=== PATIENT | female | born 1955 | race Caucasian/White ===

== ENCOUNTER → 2023-11-26 | Outpatient (CLI) | payer MEDICARE ==
--- NOTE | 2023-11-26 15:34 | XR ---
EXAMINATION TYPE: XR Hip Complete LT DATE OF EXAM: 11/26/2023 3:30 PM CLINICAL INDICATION: Female, 68 years old with history of [id number] LT HIP PAIN; [facility] COMPARISON: None. TECHNIQUE: XR Hip Complete LT; hip was examined in the frontal and lateral projections and a AP pelvi s. FINDINGS: No evidence for acute process, joint dislocation or significant soft tissue swelling. Osteo phyte formation of the superior acetabulum of the hip. There is mild joint space narrowing. IMPRESSION: 1. No evidence for acute process. 2. Mild hip osteoarthrosis. [facility], , 11/26/2023 3:32 PM
== END | disposition home or self-care (01) ==
LOC: RADXRYALE 15:17
PROVIDERS: ATTEND Internal Medicine
DX: M16.12 Unilateral primary osteoarthritis, left hip (principal)
CPT/HCPCS: 73502